=== PATIENT | female | born 1990 | race Caucasian/White ===

== ENCOUNTER 2018-07-03 06:35 | Emergency (ER) | payer SELFPAY ==
--- OUTSIDE RECORDS SUMMARY | 2018-07-03 06:37 | XMS REPORT | Clinical Summary ---
:1990 Author Organization [facility] Address [address] [place] [address] Care Team Providers Name Role Phone Asked, No Pcp Primary Care Provider Unavailable Allergies No Known Allergies Current Medications Prescription Sig. Disp. Refills Start Date End Date Status etodolac (LODINE) 500 Take 1 tablet 20 tablet 0 07/05/2017 07/15/2017 MG tablet (500 mg total) by mouth 2 (two) times a day for 10 days. 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 Pulse 107 07/05/2017 8:32 PM COMPUTER LABORATORY TECHNICIAN Temperature 36.9 C (98.4 F) 07/05/2017 8:32 PM COMPUTER LABORATORY TECHNICIAN Respiratory Rate 16 07/05/2017 8:32 PM COMPUTER LABORATORY TECHNICIAN Oxygen Saturation 98% 07/05/2017 8:32 PM COMPUTER LABORATORY TECHNICIAN Inhaled Oxygen Concentration - - Weight 53.1 kg (117 lb) 07/05/2017 8:30 PM COMPUTER LABORATORY TECHNICIAN Height 152.4 cm (5') 07/05/2017 8:30 PM COMPUTER LABORATORY TECHNICIAN Body Mass Index 22.85 07/05/2017 8:30 PM COMPUTER LABORATORY TECHNICIAN Plan of Treatment Health Maintenance Due Date Last Done Comments CERVICAL CANCER SCREENING 02/03/2013 INFLUENZA VACCINE 03/30/2018 Procedures Procedure Name Priority Date/Time Associated Diagnosis Comments XR FOOT 3+ VW RIGHT STAT 07/05/2017 9:14 PM Results for this COMPUTER LABORATORY TECHNICIAN procedure are in the results section. after 07/02/2017 Results XR Foot 3+ Vw Right (07/05/2017 9:14 PM) Narrative Performed At EXAMINATION:XR FOOT 3VW RIGHT [facility] CLINICAL HISTORY:great toe trauna COMPARISON:None. IMPRESSION: 1.There is no evidence of acute right foot fracture or dislocation. There are no radiopaque foreign bodies. 2.There are no focal bony erosions or periostitis. [facility]-[id number] Procedure Note Interface, Radiology Results Incoming - 07/05/2017 9:20 PM COMPUTER LABORATORY TECHNICIAN EXAMINATION: XR FOOT 3 VW RIGHT CLINICAL HISTORY: great toe trauna COMPARISON: None. IMPRESSION: 1. There is no evidence of acute right foot fracture or dislocation. There are no radiopaque foreign bodies. 2. There are no focal bony erosions or periostitis. [facility]-[id number] Performing Organization Address City/State/Zipcode Phone Number [facility] [address] [place] [address] after 07/02/2017
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
--- OUTSIDE RECORDS SUMMARY | 2018-07-03 06:37 | XMS REPORT ---
:1990 Author Organization [employer] Care Team Providers Name Role Phone Sridhar Zimmerman Provider Role Unavailable Allergies No Known Allergies Problems Problem Type Condition Code Onset Dates Condition Status Problem Asthma, unspecified asthma J45.909 Active severity, unspecified whether complicated, unspecified whether persistent Problem Seasonal allergies J30.2 Active Medications No Known Medications Results No Known Results Summary Purpose [employer] Submission
[2018-07-03] MEDS ORDERED: predniSONE 10 MG TAB ONE (07:11)
[2018-07-03] MEDS ORDERED: ALBUTEROL 2.5 MG/3 ML NEB SOL ONE (07:11)
[2018-07-03] MEDS ORDERED: IPRATROPIUM BROM 0.5MG/2.5ML ONE (07:11)
[2018-07-03] MEDS ORDERED: predniSONE 20 MG TAB ONE (07:12)
--- NOTE | 2018-07-03 08:45 | ER ---
Nurse's Notes [facility] Name: dEna Alanis Age: 28 yrs Sex: Female : 1990 Arrival Date: 07/03/2018 Time: 06:36 Bed 6 Private MD: Diagnosis: Unspecified asthma with (acute) exacerbation Presentation: 07/03 06:47 Presenting complaint: Patient states: Pt reports difficulty breathing for the past ea three days states " I have been using my inhalers because I ran out of my breathing treatments but they haven't helped". Transition of care: patient was not received from another setting of care. Onset of symptoms was July 03, 2018. Risk Assessment: Do you want to hurt yourself or someone else? Patient reports no desire to harm self or others. Initial Sepsis Screen: Does the patient meet any 2 criteria? RR > 20 per min. HR > 90 bpm. Yes Does the patient have a suspected source of infection? No. Patient's initial sepsis screen is negative. Care prior to arrival: None. 06:47 Method Of Arrival: Ambulatory ea 06:47 Acuity: ADAM 3 ea Triage Assessment: 06:54 General: Appears uncomfortable, Behavior is calm, cooperative, appropriate for age. ea Pain: Denies pain. Neuro: Level of Consciousness is awake, alert, obeys commands, Oriented to person, place, time, situation. Cardiovascular: Patient's skin is warm and dry. Respiratory: Reports shortness of breath Breath sounds with wheezes bilaterally. Onset: The symptoms/episode began/occurred 3 days ago, the patient has mild shortness of breath. Derm: Skin is pink, warm \\T\\ dry. 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 - Social history:: Smoking status: Patient/guardian denies using tobacco. - Ebola Screening: : No symptoms or risks identified at this time. Screenin:00 Abuse screen: Denies threats or abuse. Nutritional screening: No deficits noted. rb1 Tuberculosis screening: No symptoms or risk factors identified. Fall Risk None identified. Assessment: 07:00 General: Appears in no apparent distress. comfortable, Behavior is calm, cooperative. rb1 General: Denies fever. Pain: Complains of pain in back between the shoulder blades Pain currently is 8 out of 10 on a pain scale. Neuro: Level of Consciousness is awake, alert, obeys commands, Oriented to person, place, time, situation. Cardiovascular: Capillary refill < 3 seconds is brisk in bilateral fingers. Respiratory: Reports shortness of breath at rest Airway is patent Respiratory effort is even, unlabored, Respiratory pattern is regular, symmetrical. GI: No signs and/or symptoms were reported involving the gastrointestinal system. : No signs and/or symptoms were reported regarding the genitourinary system. Derm: Skin is pink, warm \\T\\ dry. 08:54 Reassessment: Patient appears in no apparent distress at this time. Patient and/or ph family updated on plan of care and expected duration. Pain level reassessed. Patient is alert, oriented x 3, equal unlabored respirations, skin warm/dry/pink. Patient states feeling better. Patient states symptoms have improved. Vital Signs: 06:52 BP 133 / 93; Pulse 107; Resp 22; Temp 97.9(O); Pulse Ox 97% ; Weight 56.7 kg; Height 5 ea ft. (152.40 cm); Pain 0/10; 08:00 BP 128 / 84; Pulse 99; Resp 17; Pulse Ox 96% on R/A; tw2 08:45 BP 102 / 87; Pulse 89; Resp 20; Pulse Ox 98% on R/A; ph 06:52 Body Mass Index 24.41 (56.70 kg, 152.40 cm) ea ED Course: 06:36 Patient arrived in ED. al2 06:50 Triage completed. ea 06:52 Mert Bales PA is PHCP. cp 06:52 Mateus Porter MD is Attending Physician. cp 07:00 Patient has correct armband on for positive identification. Bed in low position. Call rb1 light in reach. Side rails up X 1. Pulse ox on. NIBP on. 07:00 Arm band placed on right wrist. rb1 08:39 Neil Smith MD is Attending Physician. cp 08:44 Gibson, Morena, RN is Primary Nurse. ph 08:52 No provider procedures requiring assistance completed. Patient did not have IV access ph during this emergency room visit. Administered Medications: 07:07 Drug: predniSONE 10 mg Route: PO; rb1 08:51 Follow up: Response: No adverse reaction; Marked relief of symptoms ph 07:08 Drug: Albuterol - atroVENT (3:1) (2.5 mg - 0.5 mg) 3 ml Route: Nebulizer; rb1 08:51 Follow up: Response: No adverse reaction; Marked relief of symptoms; Wheezing diminishedph 07:08 Drug: predniSONE 40 mg Route: PO; rb1 08:51 Follow up: Response: No adverse reaction; Marked relief of symptoms ph Outcome: 08:45 Discharge ordered by MD. cp 08:53 Discharged to home ambulatory, with friend. ph 08:53 Condition: improved 08:53 Discharge instructions given to patient, Instructed on discharge instructions, follow up and referral plans. medication usage, Demonstrated understanding of instructions, follow-up care, medications, Prescriptions given X 4. 08:54 Patient left the ED. ph Signatures: Morena Gibson, RN RN ph Mert Bales, Chelsy Arredondo cp, RN RN rb1 Capri Child RN RN tw2 Joie Nichols, RN Lashay Sullivan ea
--- NOTE | 2018-07-03 08:45 | EDPHYS ---
Physician Documentation [facility] Name: Edna Alanis Age: 28 yrs Sex: Female : 1990 Arrival Date: 07/03/2018 Time: 06:36 Bed 6 Private MD: ED Physician Neil Smith HPI: 07/03 07:00 This 28 yrs old Female presents to ER via Ambulatory with complaints of cp Breathing Difficulty, Asthma Exacerbation. 07:00 The patient has shortness of breath at rest. cp 07:00 Onset: The symptoms/episode began/occurred 3 day(s) ago. cp 07:00 Duration: The symptoms are continuous, and are steadily getting worse. Associated signs cp and symptoms: Pertinent negatives: chest pain, productive cough, fever, vomiting. 07:00 Severity of symptoms: in the emergency department the symptoms are unchanged despite cp home interventions. URGENT CARE: 06:52 LMP 05/16/2018 ea Historical: - Allergies: 06:52 No Known Allergies; ea - Home Meds: 06:52 Advair Diskus Inhl [Active]; Flovent Inhl [Active]; Albuterol Nebulizer [Active]; ea - PMHx: 06:52 Asthma; ea - PSHx: 06:52 None; ea - Immunization history:: Adult Immunizations up to date. - Social history:: Smoking status: Patient/guardian denies using tobacco. - Ebola Screening: : No symptoms or risks identified at this time. ROS: 07:05 Constitutional: Negative for body aches, chills, fever, poor PO intake. cp 07:05 Eyes: Negative for injury, pain, redness, and discharge. cp 07:05 ENT: Negative for drainage from ear(s), ear pain, sore throat, difficulty swallowing, difficulty handling secretions. 07:05 Cardiovascular: Negative for chest pain, edema, palpitations. 07:05 Respiratory: Positive for cough, with no reported sputum, shortness of breath, wheezing. 07:05 Abdomen/GI: Negative for abdominal pain, nausea, vomiting, and diarrhea. 07:05 Back: Negative for pain at rest, pain with movement, radiated pain. 07:05 : Negative for urinary symptoms. 07:05 Skin: Negative for cellulitis, rash. 07:05 Neuro: Negative for altered mental status, dizziness, headache, syncope, near syncope, weakness. 07:05 All other systems are negative. Exam: 07:10 Constitutional: The patient appears in no acute distress, alert, awake, non-toxic, well cp developed, well nourished. 07:10 Head/Face: Normocephalic, atraumatic. Eyes: Pupils equal round and reactive to light, cp extra-ocular motions intact. Lids and lashes normal. Conjunctiva and sclera are non-icteric and not injected. Cornea within normal limits. Periorbital areas with no swelling, redness, or edema. ENT: Nares patent. No nasal discharge, no septal abnormalities noted. Tympanic membranes are normal and external auditory canals are clear. Oropharynx with no redness, swelling, or masses, exudates, or evidence of obstruction, uvula midline. Mucous membranes moist. Neck: Trachea midline, no thyromegaly or masses palpated, and no cervical lymphadenopathy. Supple, full range of motion without nuchal rigidity, or vertebral point tenderness. No Meningismus. Chest/axilla: Normal chest wall appearance and motion. Nontender with no deformity. No lesions are appreciated. 07:10 Cardiovascular: Rate: tachycardic, Rhythm: regular, Heart sounds: murmur, not appreciated, Edema: is not appreciated. 07:10 Respiratory: the patient does not display signs of respiratory distress, Respirations: labored breathing, is not present, intercostal retractions, are absent, splinting, is not noted, tachypnea, is not appreciated, Breath sounds: decreased breath sounds, are not appreciated, stridor, is not appreciated, wheezing: that is mild, is heard diffusely. 07:10 Abdomen/GI: Exam negative for discomfort, distension, guarding, Inspection: abdomen appears normal. 07:10 Back: pain, is absent, ROM is normal. 07:10 Skin: cellulitis, is not appreciated, no rash present. 07:10 Neuro: Orientation: to person, place \T\ time. Mentation: is normal, Cerebellar function: is grossly normal, Motor: moves all fours, strength is normal, Sensation: no obvious gross deficits, Gait: is steady, at a normal pace, without difficulty. Vital Signs: 06:52 BP 133 / 93; Pulse 107; Resp 22; Temp 97.9(O); Pulse Ox 97% ; Weight 56.7 kg; Height 5 ea ft. (152.40 cm); Pain 0/10; 08:00 BP 128 / 84; Pulse 99; Resp 17; Pulse Ox 96% on R/A; tw2 08:45 BP 102 / 87; Pulse 89; Resp 20; Pulse Ox 98% on R/A; ph 06:52 Body Mass Index 24.41 (56.70 kg, 152.40 cm) ea MDM: 06:52 Patient medically screened. cp 07:00 Differential diagnosis: asthma, Bronchitis Chronic Obstructive Pulmonary Disease cp pneumonia, Pneumothorax pulmonary edema, Pulmonary Embolism reactive airway disease. 08:39 Data reviewed: vital signs, nurses notes, and as a result, I will discharge patient. cp 08:39 Response to treatment: the patient's symptoms have markedly improved after treatment, cp VSS. Wheezing resolved and cough improved, and as a result, I will discharge patient. Administered Medications: 07:07 Drug: predniSONE 10 mg Route: PO; rb1 08:51 Follow up: Response: No adverse reaction; Marked relief of symptoms ph 07:08 Drug: Albuterol - atroVENT (3:1) (2.5 mg - 0.5 mg) 3 ml Route: Nebulizer; rb1 08:51 Follow up: Response: No adverse reaction; Marked relief of symptoms; Wheezing diminishedph 07:08 Drug: predniSONE 40 mg Route: PO; rb1 08:51 Follow up: Response: No adverse reaction; Marked relief of symptoms ph Disposition: 10:48 Co-signature as Attending Physician, Neil Smith MD I agree with the assessment and kdr plan of care. Disposition: 07/03/18 08:45 Discharged to Home. Impression: Unspecified asthma with (acute) exacerbation. - Condition is Stable. - Discharge Instructions: Asthma, Adult. - Prescriptions for Advair HFA 45- 21 mcg/actuation Inhalation HFA aerosol inhaler - inhale 2 puff by INHALATION route 2 times per day; 1 Inhaler. Albuterol Sulfate 2.5 mg /3 mL (0.083 %) Inhalation Solution for Nebulization - inhale 1 unit by NEBULIZATION route every 8 hours As needed; 1 box. Prednisone 20 mg Oral Tablet - take 2 tablet by ORAL route once daily for 5 days; 10 tablet. Albuterol Sulfate 90 mcg/actuation - inhale 1-2 puff by INHALATION route every 4-6 hours; 1 Inhaler. - Medication Reconciliation Form, Thank You Letter, Antibiotic Education, Prescription Opioid Use form. - Follow up: Private Physician; When: 1 - 2 days; Reason: Recheck today's complaints. - Problem is an acute exacerbation. - Symptoms have improved. Signatures: Neil Smith MD MD kdr Ballard, Brenda, RN RN bb Morena Gibson RN RN ph Mert Bales PA PA cp Barber, Rebecca, RN RN [facility] Joie Nichols RN RN ea Corrections: (The following items were deleted from the chart) 08:54 08:45 07/03/2018 08:45 Discharged to Home. Impression: Unspecified asthma with (acute) ph exacerbation. Condition is Stable. Forms are Medication Reconciliation Form, Thank You Letter, Antibiotic Education, Prescription Opioid Use. Follow up: Private Physician; When: 1 - 2 days; Reason: Recheck today's complaints. Problem is an acute exacerbation. Symptoms have improved. cp
[2018-07-03 08:59] VITALS: TEMP 97.9
[2018-07-03 09:02] VITALS: BP 102/87; O2SAT 98
== END 2018-07-03 08:54 | disposition home or self-care (01) ==
LOC: ER 06:35
DX: J45.901 Unspecified asthma with (acute) exacerbation (principal)
CPT/HCPCS: 94640; 99284; J7512

== ENCOUNTER 2018-10-17 10:54 | Emergency (ER) | payer OTHER, SELFPAY ==
--- OUTSIDE RECORDS SUMMARY | 2018-10-17 10:56 | XMS REPORT | Clinical Summary ---
:1990 Author Organization [facility] Address [address] [place] [address] Care Team Providers Name Role Phone Asked, No Pcp Primary Care Provider Unavailable Allergies No Known Allergies Medications Medication Sig Dispensed Refills Start Date End Date Status PROAIR HFA 90 INHALE 2 PUFFS 0 06/10/2018 08/03/2018 Discontinued mcg/actuation BY MOUTH EVERY inhaler 4 HOURS predniSONE Take 20 mg by 0 06/10/2018 08/03/2018 Discontinued (DELTASONE) 20 mg mouth daily. tablet azithromycin Take 2 tablets 6 tablet 0 08/03/2018 08/07/2018 (ZITHROMAX Z-MADELIN) the first day, 250 MG tablet then 1 tablet daily for 4 days. albuterol (PROAIR Inhale 1-2 1 Inhaler 0 08/03/2018 09/02/2018 HFA,PROVENTIL puffs every 6 HFA,VENTOLIN HFA) (six) hours as 90 mcg/actuation needed for inhaler wheezing for up to 30 days. cetirizine Take 1 tablet 30 tablet 0 08/03/2018 09/02/2018 (ZyrTEC) 10 MG (10 mg total) tablet by mouth daily as needed for allergies for up to 30 days. Active Problems Comments Yes No additional problems on file Encounters Date Type Specialty Care Team Description 08/03/2018 Emergency Emergency Medicine Titus Verdugo, Moderate asthma with acute exacerbation, unspecified whether persistent (Primary Dx); [employer] SCRE[employer]-C , unspecified gestational age Edwin Berrios MD 08/03/2018 Travel after 10/16/2017 Immunizations Name Dates Previously Given Next Due FLUCELVAX QUAD PF (0.5mL syringe) 08/03/2018 Social History Tobacco Use Types Packs/Day Years Used Date Never Smoker Smokeless Tobacco: Never Used Alcohol Use Drinks/Week oz/Week Comments No Alcohol Habits Answer Date Recorded How often do you have a drink containing alcohol? Never 08/03/2018 How many drinks containing alcohol do you have on a typical Not asked 2017 day when you are drinking? How often do you have six or more drinks on one occasion? Not asked 2017 Comments Yes Sex Assigned at Date Recorded Not on file Job Start Date Occupation Industry Not on file Not on file Not on file Travel History Travel Start Travel End No recent travel history available. Last Filed Vital Signs Vital Sign Reading Time Taken Blood Pressure 119/73 08/03/2018 10:00 PM [employer] Pulse 121 08/03/2018 10:00 PM [employer] Temperature 36.8 C (98.2 F) 08/03/2018 6:08 PM [employer] Respiratory Rate 15 08/03/2018 10:00 PM [employer] Oxygen Saturation 98% 08/03/2018 10:00 PM [employer] Inhaled Oxygen Concentration - - Weight 55.3 kg (122 lb) 08/03/2018 5:47 PM [employer] Height 152.4 cm (5') 08/03/2018 5:47 PM [employer] Body Mass Index 23.83 08/03/2018 5:47 PM [employer] Plan of Treatment Health Maintenance Due Date Last Done Comments CERVICAL CANCER SCREENING 02/03/2013 INFLUENZA VACCINE Completed 08/03/2018 Procedures Procedure Name Priority Date/Time Associated Comments Diagnosis ECG ED PRELIMINARY Routine 08/03/2018 8:10 Results for this INTERPRETATION PM [employer] procedure are in the results section. XR CHEST 1 VW PORTABLE STAT 08/03/2018 7:03 Results for this PM [employer] procedure are in the results section. HCG QUALITATIVE, URINE STAT 08/03/2018 6:27 Results for this SCREEN PM [employer] procedure are in the results section. ESTIMATED GFR STAT 08/03/2018 6:14 Results for this PM [employer] procedure are in the results section. COMPREHENSIVE METABOLIC STAT 08/03/2018 6:14 Results for this PANEL PM [employer] procedure are in the results section. HC COMPLETE BLD COUNT STAT 08/03/2018 6:14 Results for this W/AUTO DIFF PM [employer] procedure are in the results section. ECG 12-LEAD Routine 08/03/2018 5:59 Results for this PM [employer] procedure are in the results section. after 10/16/2017 Results ECG ED Preliminary Interpretation - Not an Order (08/03/2018 8:10 PM [employer]) Narrative Performed At Titus Verdugo NP-C 08/05/20181:35 AM ECG ED Preliminary Interpretation - Not an Order Performed by: Titus Verdugo NP-C Authorized by: Titus Verdugo NP-C ECG reviewed by ED Physician in the absence of a glass sander belt: yes Previous ECG: Previous ECG:Unavailable Interpretation: Interpretation: non-specific Rate: ECG rate:115 ECG rate assessment: tachycardic Rhythm: Rhythm: sinus tachycardia Ectopy: Ectopy: none QRS: QRS axis:Normal QRS intervals:Normal ST segments: ST segments:Normal T waves: T waves: non-specific Comments: Inferior infarct age undetermined. XR Chest 1 Vw Portable (08/03/2018 7:03 PM [employer]) Narrative Performed At EXAMINATION:XR CHEST 1 VW PORTABLE [facility] CLINICAL HISTORY:worsening coughfever COMPARISON:None. IMPRESSION: Single frontal view reveals a normal cardiomediastinal silhouette. Lungs are clear. Pleural margins are sharp. The remainder of the examination is unremarkable. [facility]-[id number] Procedure Note Hm Interface, Radiology Results Incoming - 08/03/2018 7:09 PM [employer] EXAMINATION: XR CHEST 1 VW PORTABLE CLINICAL HISTORY: worsening cough fever COMPARISON: None. IMPRESSION: Single frontal view reveals a normal cardiomediastinal silhouette. Lungs are clear. Pleural margins are sharp. The remainder of the examination is unremarkable. [facility]-[id number] Performing Organization Address City/[facility]/Zipcode Phone Number [facility] [address] [place] [address] hCG qualitative, urine screen (08/03/2018 6:27 PM [employer]) hCG qualitative, urine Positive Negative [facility] Comment: [facility] The manufacturers stated sensitivity of HcG test for serum is >/=10 mIU/ml and urine is >/=20mIU/ml. Specimen Urine Performing Organization Address City/[facility]/Zipcode Phone Number [facility] DEPARTMENT OF PATHOLOGY AND [address] [place] [address] GENOMIC MEDICINE [facility] [address] [place] [address] HOSPITAL Estimated GFR (08/03/2018 6:14 PM [employer]) Estimated GFR >=90 mL/min/1.73 m2 [facility] Comment: [facility] CatergoryUnitsInterpretation G1 >=90 Normal or high G2 60-89Mildly decreased [id number] to moderately decreased [id number] to severely decreased G4 15-29Severely decreased G5 <15Kidney failure The eGFR was calculated using the Chronic Kidney Disease Epidemiology Collaboration (CKD-EPI) equation. Interpretation is based on recommendations of the National Kidney Foundation-Kidney Disease Outcomes Quality Initiative (NKF-KDOQI) published in 2014. Specimen Plasma specimen Performing Organization Address City/State/Zipcode Phone Number [facility] DEPARTMENT OF PATHOLOGY AND [address] [place] [address] GENOMIC MEDICINE [facility] [address] [place] [address] [facility] CBC with platelet and differential (08/03/2018 6:14 PM [employer]) WBC 9.96 4.50 - 11.00 k/uL [facility] RBC 4.73 4.20 - 5.50 m/uL [facility] HGB 14.6 12.0 - 16.0 g/dL [facility] HCT 42.9 37.0 - 47.0 % [facility] MCV 90.7 82.0 - 100.0 fL [facility] MCH 30.9 27.0 - 34.0 pg [facility] MCHC 34.0 31.0 - 37.0 g/dL [facility] RDW - SD 39.6 37.0 - 55.0 fL [facility] MPV 9.0 8.8 - 13.2 fL [facility] Platelet count 306 150 - 400 k/uL [facility] Nucleated RBC 0.00 /100 WBC [facility] Neutrophils 79.8 (H) 39.0 - 69.0 % [facility] Lymphocytes 6.5 (L) 25.0 - 45.0 % [facility] Monocytes 8.7 0.0 - 10.0 % [facility] Eosinophils 4.0 0.0 - 5.0 % [facility] Basophils 0.8 0.0 - 1.0 % [facility] Specimen Blood Performing Organization Address City/[facility] Phone Number [facility] DEPARTMENT OF PATHOLOGY AND [address] [place] [address] GENOMIC MEDICINE [facility] [address] [place] [address] [facility] Comprehensive metabolic panel (08/03/2018 6:14 PM [employer]) Sodium 138 135 - 148 mEq/L [facility] Potassium 3.4 (L) 3.5 - 5.0 mEq/L [facility] Chloride 101 98 - 112 mEq/L [facility] CO2 22 (L) 24 - 31 mEq/L [facility] Anion gap 15@ANIO 7 - 15 mEq/L [facility] BUN 6 6 - 20 mg/dL [facility] Creatinine 0.70 0.50 - 0.90 mg/dL [facility] Glucose 98 65 - 99 mg/dL [facility] Calcium 10.1 8.3 - 10.2 mg/dL [facility] Protein 8.4 (H) 6.3 - 8.3 g/dL [facility] Comment: [facility] 4.6-7.0 g/dL 1 week 4.4-7.6 g/dL 7 months-1year5.1-7.3 g/dL 1-2 years5.6-7.5 g/dL >3 years6.0-8.0 g/dL 18-150 6.3-8.3 g/dL Albumin 5.0 3.5 - 5.0 g/dL [facility] A/G ratio 1.5 0.7 - 3.8 [facility] Alkaline phosphatase 59 35 - 104 U/L [facility] AST 52 (H) 10 - 35 U/L [facility] ALT 40 5 - 50 U/L [facility] Total bilirubin 0.3 0.0 - 1.2 mg/dL [facility] Specimen Plasma specimen Performing Organization Address City/[facility]/Zipcode Phone Number [facility] DE[facility] OF PATHOLOGY AND [address] [place] [address] GENOMIC MEDIC[address] [facility] [address] [place] [address] [facility] ECG 12 lead (08/03/2018 5:59 PM [employer]) Ventricular rate 115 [facility] Atrial rate 115 [facility] MT interval 138 [facility] QRSD interval 74 [facility] QT interval 304 [facility] QTC interval 420 [facility] P axis 1 -21 [facility] QRS axis 1 -15 [facility] T wave axis -22 [facility] EKG impression Sinus tachycardia-Inferior infarct , age [facility] undetermined-Abnormal ECG-No previous ECGs available- Narrative Performed At Performing Organization Address City/State/Zipcode Phone Number [facility] [place] [place] [address] [place] [address] after 10/16/2017 Insurance Payer Benefit Plan / Group Subscriber ID Type Phone Address MEDICAID MEDICAID xxxxxxxxx Medicaid MEDICAID MEDICAID xxxxxxxxx Medicaid Advance Directives Patient has advance care planning documents on file. For more information, please contact:Willy Cade[address] [place] [address]
--- OUTSIDE RECORDS SUMMARY | 2018-10-17 10:56 | XMS REPORT ---
:1990 [facility] Address [address] [place] [address] Dr. Willard [address] [place] [id number] Care Team Providers Name Role Phone Unavailable Unavailable Unavailable Problems This patient has no known problems. Allergies, Adverse Reactions, Alerts This patient has no known allergies or adverse reactions. Medications This patient has no known medications.
--- OUTSIDE RECORDS SUMMARY | 2018-10-17 10:56 | XMS REPORT ---
[...] Status Dosage System Date Date GNP Loratadine-D [facility] [id number] 5-120 MG Orally May 03Jul 02, Active 1 tablet 12HR every 12 hrs 2017 2017 as needed Montelukast ND 91960189709 10 MG Orally May 03, Active 1 tablet Sodium Once a day 2017 Metronidazole ND 98370171438 500 MG Orally May 03Apr Active 1 tablet Twice a day 2017 Fluticasone [facility] [address]-83 110 MCG/ACT May 03, Jul 02, Active 1 puff Propionate HFA Inhalation 2017 2017 Twice a day Albuterol [facility] [id number] (2.5 MG/3ML) Active 3 ml as Sulfate 0.083% needed Inhalation Three times a day Results No Known Results Summary Purpose eClinicalWorks Submission
[2018-10-17] MEDS ORDERED: ALBUTEROL 2.5 MG/3 ML NEB SOL ONE ×2 (11:21→12:54)
[2018-10-17] MEDS ORDERED: IPRATROPIUM BROM 0.5MG/2.5ML ONE ×2 (11:21→12:54)
[2018-10-17] MEDS ORDERED: predniSONE 20 MG TAB ONE (11:28)
[2018-10-17] MEDS ORDERED: Magnesium Sulfate 2gm IVPB 2 G/50 ML BAG IV ONE (11:28)
--- NOTE | 2018-10-17 13:25 | ER ---
Nurse's Notes [facility] Name: Edna Alanis Age: 28 yrs Sex: Female : 1990 Arrival Date: 10/17/2018 Time: 10:56 Bed 23 Private MD: Diagnosis: Unspecified asthma with (acute) exacerbation Presentation: 10/17 11:03 Presenting complaint: Patient states: cough and SOB x 2 days ago, pt reports symptoms aa5 got worse last night. Pt also reports chest pressure. 11:03 Transition of care: patient was not received from another setting of care. Onset of aa5 symptoms was September 2018. Risk Assessment: Do you want to hurt yourself or someone else? Patient reports no desire to harm self or others. Care prior to arrival: None. 11:03 Method Of Arrival: Ambulatory aa5 11:03 Acuity: ADAM 2 aa5 11:10 Initial Sepsis Screen: Does the patient meet any 2 criteria? RR > 20 per min. HR > 90 aa5 bpm. Yes Does the patient have a suspected source of infection? No. Patient's initial sepsis screen is negative. Triage Assessment: 13:42 General: Behavior is. 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 - Ebola Screening: : No symptoms or risks identified at this time. - Social history:: Smoking status: Patient/guardian denies using tobacco. Screenin:30 Abuse screen: Denies threats or abuse. Nutritional screening: No deficits noted. aa5 Tuberculosis screening: No symptoms or risk factors identified. Fall Risk None identified. Assessment: 11:08 General: Appears distressed, uncomfortable, Behavior is cooperative. Pain: Complains of aa5 pain in mid-sternal area Pain does not radiate. Pain currently is 6 out of 10 on a pain scale. Quality of pain is described as pressure, Is continuous. Neuro: Level of Consciousness is awake, alert, obeys commands, Oriented to person, place, time, situation. Cardiovascular: Heart tones S1 S2 present Rhythm is regular. Respiratory: Airway is patent Respiratory effort is even, labored, Respiratory pattern is tachypnea Breath sounds with wheezes bilaterally. GI: No signs and/or symptoms were reported involving the gastrointestinal system. : No signs and/or symptoms were reported regarding the genitourinary system. EENT: No signs and/or symptoms were reported regarding the EENT system. Derm: Skin is pink, warm \\T\\ dry. Musculoskeletal: Range of motion: intact in all extremities. 11:29 Reassessment: Patient states feeling better. Pain: Pain currently is 4 out of 10 on a aa5 pain scale. Neuro: Level of Consciousness is awake, alert, obeys commands, Oriented to person, place, time, situation. Respiratory: Airway is patent Respiratory effort is labored, Respiratory pattern is tachypnea. Derm: Skin is pink, warm \\T\\ dry. 11:40 Reassessment: Patient is alert, oriented x 3, equal unlabored respirations, skin aa5 warm/dry/pink. Pt states "my chest still feels pretty tight". Pt rates chest pressure 4/10 on a pain scale. LINE OUT MAN notified . 12:44 Reassessment: Patient and/or family updated on plan of care and expected duration. Pain aa5 level reassessed. Patient is alert, oriented x 3, equal unlabored respirations, skin warm/dry/pink. 13:12 General: Appears in no apparent distress. Respiratory: Airway is patent Respiratory ca1 effort is even, unlabored, Respiratory pattern is regular, symmetrical, Breath sounds are clear in left posterior upper lobe and left posterior lower lobe Breath sounds with wheezes in right posterior upper lobe. 13:30 Reassessment: Patient appears in no apparent distress at this time. Patient and/or ca1 family updated on plan of care and expected duration. Pain level reassessed. Patient is alert, oriented x 3, equal unlabored respirations, skin warm/dry/pink. Vital Signs: 11:03 BP 120 / 79; Pulse 128; Resp 30 S; Pulse Ox 90% on R/A; aa5 11:29 Pulse 110; Resp 26 S; Temp 99.3(TE); Pulse Ox 98% on Nebulizer Mask; aa5 11:40 BP 123 / 85; Pulse 128; Resp 22 S; Pulse Ox 95% on R/A; aa5 13:14 BP 149 / 94; Pulse 118; Resp 23; Pulse Ox 99% on R/A; ca1 13:30 BP 130 / 77; Pulse 118; Resp 31; Pulse Ox 97% on R/A; ca1 11:40 LINE OUT MAN notified of VS aa5 Vitals: 12:07 Heart Tones 162. ss ED Course: 10:56 Patient arrived in ED. as 11:06 Arianne Bruner FNP-C is PHCP. kb 11:06 Mert Torres MD is Attending Physician. kb 11:06 Arm band placed on Patient placed in an exam room, on a stretcher. aa5 11:06 Patient has correct armband on for positive identification. Bed in low position. Call aa5 light in reach. Side rails up X 1. 11:12 Inserted saline lock: 20 gauge in right antecubital area, using aseptic technique. aa5 11:22 Esperanza Benítez RN is Primary Nurse. aa5 11:24 Triage completed. aa5 13:00 Report given to Diana Beavers RN. aa5 13:41 No provider procedures requiring assistance completed. IV discontinued, intact, ca1 bleeding controlled, No redness/swelling at site. Pressure dressing applied. Administered Medications: 11:12 Drug: DuoNeb (3:1) (2.5 mg - 0.5 mg) 3 ml Route: Nebulizer; aa5 11:34 Follow up: Response: No adverse reaction aa5 13:00 Follow up: Response: No adverse reaction; Marked relief of symptoms ca1 11:15 Drug: Magnesium Sulfate 2 grams Route: IVPB; Infused Over: 2 hrs; Site: right aa5 antecubital; 11:40 Follow up: Response: No adverse reaction; IV Status: Infusion continued aa5 13:00 Follow up: Response: No adverse reaction; IV Status: Completed infusion ca1 11:15 Drug: predniSONE 40 mg Route: PO; aa5 11:34 Follow up: Response: No adverse reaction aa5 13:00 Follow up: Response: No adverse reaction; Marked relief of symptoms ca1 12:44 Drug: DuoNeb (3:1) (2.5 mg - 0.5 mg) 3 ml Route: Nebulizer; aa5 13:00 Follow up: Response: No adverse reaction; Marked relief of symptoms ca1 Outcome: 13:25 Discharge ordered by MD. rojas 13:41 Discharged to home ambulatory. ca1 13:41 Condition: stable 13:41 Discharge instructions given to patient, Instructed on discharge instructions, follow up and referral plans. medication usage, Demonstrated understanding of instructions, follow-up care, medications, Prescriptions given X 1. 13:42 Patient left the ED. ca1 Signatures: Arianne Bruner, TUBULAR RIVETER-C TUBULAR RIVETER-Angela Vail Audri, RN RN aa5 Aimee Khalil RN RN ss Diana Beavers RN RN ca1 Corrections: (The following items were deleted from the chart) 11:51 11:40 Reassessment: Patient is alert, oriented x 3, equal unlabored respirations, skin aa5 warm/dry/pink. Pt states "my chest still feels pretty tight". Pt rates chest pressure 4/10 on a pain scale. . aa5
--- NOTE | 2018-10-17 13:25 | EDPHYS ---
Physician Documentation [facility] Name: Edna Alanis Age: 28 yrs Sex: Female : 1990 Arrival Date: 10/17/2018 Time: 10:56 Bed 23 Private MD: ED Physician Mert Torres HPI: 10/17 13:20 This 28 yrs old Female presents to ER via Ambulatory with complaints of kb Asthma Exacerbation, 16 weeks . 13:20 The patient presents to the emergency department with wheezing, Current therapy: kb albuterol inhaler, albuterol nebs. Onset: The symptoms/episode began/occurred 2 day(s) ago. 13:21 Modifying factors: The symptoms are alleviated by nothing, the symptoms are aggravated kb by nothing. Associated signs and symptoms: The patient has no apparent associated signs or symptoms. Severity of symptoms: At their worst the symptoms were moderate severe in the emergency department the symptoms are unchanged. The patient has experienced similar episodes in the past, multiple times. The patient has not recently seen a physician. 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 - Ebola Screening: : No symptoms or risks identified at this time. - Social history:: Smoking status: Patient/guardian denies using tobacco. ROS: 13:15 Constitutional: Negative for fever, chills, and weight loss, ENT: Negative for injury, kb pain, and discharge, Neck: Negative for injury, pain, and swelling, Cardiovascular: Negative for chest pain, palpitations, and edema, Abdomen/GI: Negative for abdominal pain, nausea, vomiting, diarrhea, and constipation, : Negative for injury, bleeding, discharge, and swelling, MS/Extremity: Negative for injury and deformity, Skin: Negative for injury, rash, and discoloration, Neuro: Negative for headache, weakness, numbness, tingling, and seizure. 13:15 Respiratory: Positive for shortness of breath, wheezing. Exam: 13:15 Constitutional: This is a well developed, well nourished patient who is awake, alert, kb and in no acute distress. Head/Face: Normocephalic, atraumatic. Chest/axilla: Normal chest wall appearance and motion. Nontender with no deformity. No lesions are appreciated. Cardiovascular: Regular rate and rhythm with a normal S1 and S2. No gallops, murmurs, or rubs. Normal PMI, no JVD. No pulse deficits. Abdomen/GI: Soft, non-tender, with normal bowel sounds. No distension or tympany. No guarding or rebound. No evidence of tenderness throughout. Back: No spinal tenderness. No costovertebral tenderness. Full range of motion. Skin: Warm, dry with normal turgor. Normal color with no rashes, no lesions, and no evidence of cellulitis. MS/ Extremity: Pulses equal, no cyanosis. Neurovascular intact. Full, normal range of motion. Neuro: Awake and alert, GCS 15, oriented to person, place, time, and situation. Cranial nerves II-XII grossly intact. Motor strength 5/5 in all extremities. Sensory grossly intact. Cerebellar exam normal. Normal gait. 13:15 Respiratory: mild respiratory distress is noted, moderate respiratory distress is noted, Respirations: labored breathing, Breath sounds: wheezing: expiratory that is severe, is heard diffusely. Vital Signs: 11:03 BP 120 / 79; Pulse 128; Resp 30 S; Pulse Ox 90% on R/A; aa5 11:29 Pulse 110; Resp 26 S; Temp 99.3(TE); Pulse Ox 98% on Nebulizer Mask; aa5 11:40 BP 123 / 85; Pulse 128; Resp 22 S; Pulse Ox 95% on R/A; aa5 13:14 BP 149 / 94; Pulse 118; Resp 23; Pulse Ox 99% on R/A; ca1 13:30 BP 130 / 77; Pulse 118; Resp 31; Pulse Ox 97% on R/A; ca1 11:40 [employer] notified of VS aa5 MDM: 11:07 Patient medically screened. kb 13:14 Data reviewed: vital signs, nurses notes. Data interpreted: Pulse oximetry: on room air kb is 97 %. Interpretation: normal. Counseling: I had a detailed discussion with the patient and/or guardian regarding: the historical points, exam findings, and any diagnostic results supporting the discharge/admit diagnosis, the need for outpatient follow up, a family practitioner, to return to the emergency department if symptoms worsen or persist or if there are any questions or concerns that arise at home. 13:19 ED course: wheezing decreased after first round of treatment, will repeat neb. kb 13:24 ED course: Lungs clear bilaterally, resp even and unlabored. Pt reports she feels much kb better now. . 10/17 11:13 Order name: IV Start; Complete Time: 11:22 kb 10/17 11:25 Order name: FHT's; Complete Time: 12:06 kb Administered Medications: 11:12 Drug: DuoNeb (3:1) (2.5 mg - 0.5 mg) 3 ml Route: Nebulizer; aa5 11:34 Follow up: Response: No adverse reaction aa5 13:00 Follow up: Response: No adverse reaction; Marked relief of symptoms ca1 11:15 Drug: Magnesium Sulfate 2 grams Route: IVPB; Infused Over: 2 hrs; Site: right aa5 antecubital; 11:40 Follow up: Response: No adverse reaction; IV Status: Infusion continued aa5 13:00 Follow up: Response: No adverse reaction; IV Status: Completed infusion ca1 11:15 Drug: predniSONE 40 mg Route: PO; aa5 11:34 Follow up: Response: No adverse reaction aa5 13:00 Follow up: Response: No adverse reaction; Marked relief of symptoms ca1 12:44 Drug: DuoNeb (3:1) (2.5 mg - 0.5 mg) 3 ml Route: Nebulizer; aa5 13:00 Follow up: Response: No adverse reaction; Marked relief of symptoms ca1 Disposition: 10/18 07:15 Co-signature as Attending Physician, Mert Torres MD I agree with the assessment and andrea plan of care. Disposition: 10/17/18 13:25 Discharged to Home. Impression: Unspecified asthma with (acute) exacerbation. - Condition is Stable. - Discharge Instructions: Asthma, Adult, [id number]. - Prescriptions for Prednisone 20 mg Oral Tablet - take 1 tablet by ORAL route once daily for 5 days; 5 tablet. - Medication Reconciliation Form, Thank You Letter, Antibiotic Education, Prescription Opioid Use form. - Follow up: Emergency Department; When: As needed; Reason: Worsening of condition. Follow up: Private Physician; When: 2 - 3 days; Reason: Recheck today's complaints, Continuance of care, Re-evaluation by your physician. Signatures: Arianne Bruner FNP-C FNP-Mert Coronel MD MD cha Calderon, Audri, RN RN aa5 Diana Beavers RN RN ca1 Corrections: (The following items were deleted from the chart) 10/17 13:42 13:25 10/17/2018 13:25 Discharged to Home. Impression: Unspecified asthma with (acute) ca1 exacerbation. Condition is Stable. Forms are Medication Reconciliation Form, Thank You Letter, Antibiotic Education, Prescription Opioid Use. Follow up: Emergency Department; When: As needed; Reason: Worsening of condition. Follow up: Private Physician; When: 2 - 3 days; Reason: Recheck today's complaints, Continuance of care, Re-evaluation by your physician. kb
[2018-10-17 13:51] VITALS: TEMP 99.3
[2018-10-17 13:54] VITALS: BP 130/77; O2SAT 97
== END 2018-10-17 13:42 | disposition home or self-care (01) ==
LOC: ER 10:54
DX: O99.512 Diseases of the respiratory system complicating pregnancy, second trimester (principal); J45.901 Unspecified asthma with (acute) exacerbation; Z3A.16 16 weeks gestation of pregnancy
CPT/HCPCS: J3475; J7512